=== PATIENT | male | born 1965 | race Asian ===

== ENCOUNTER 2018-01-06 12:21 | Emergency (ER) | payer OTHER ==
[~2018-01-06] VITALS: Ht 167.6 cm; Wt 72.6 kg
[2018-01-06] MEDS ORDERED: NALBUPHINE HCL 10 MG/1ml INJECTION IV ONE (13:15)
[2018-01-06] MEDS ORDERED: PROMETHAZINE HCL 25 MG/ML 1ML IV ONE (13:15)
[2018-01-06] MEDS ORDERED: PROMETHAZINE HCL 25 MG/ML 1ML ONE (13:18)
[2018-01-06] MEDS ORDERED: NALBUPHINE HCL 10 MG/1ml INJECTION ONE (13:18)
[2018-01-06] MEDS ORDERED: MIDAZOLAM HCL 5 MG/ML-1ML VIAL ONE (13:55)
[2018-01-06] MEDS ORDERED: PROPOFOL 10 MG/ML 20 ML IV ONE (14:00)
[2018-01-06] MEDS ORDERED: MIDAZOLAM HCL 5 MG/ML-1ML VIAL IV ONE (14:00)
[2018-01-06] MEDS ORDERED: IOHEXOL 300 MG/ML 100ML BOTTLE IJ ONE (14:03)
[2018-01-06 16:56] VITALS: BP 122/73
== END 2018-01-06 18:03 | disposition home or self-care (01) ==
LOC: ER 12:21
DX: S42.91XA Fracture of right shoulder girdle, part unspecified, initial encounter for closed fracture (principal); S43.004A Unspecified dislocation of right shoulder joint, initial encounter; S30.0XXA Contusion of lower back and pelvis, initial encounter; W11.XXXA Fall on and from ladder, initial encounter; Y93.89 Activity, other specified; Y99.8 Other external cause status; Y92.89 Other specified places as the place of occurrence of the external cause
CPT/HCPCS: 23650; 71260; 73030; 74177; 93005; 96374; 96375; 99285; J2250; J2300; J2550; J2704; Q9967